=== PATIENT | male | born 1955 | race Caucasian/White ===

== ENCOUNTER 2016-08-01 10:53 | Day surgery (SDC) | payer BC, OTHER ==
[~2016-08-01 10:53] MED LIST: Lactated Ringers 1,000 ML IV SCH; ceFAZolin 1 GM in Premix Bag 1 BAG IV ONE
[2016-08-01] MEDS ORDERED: Iopamidol 408 MG/ML 50 ML SDV ONE (12:10)
--- NOTE | 2016-08-01 13:24 | PCM.PREANE ---
Preanesthetic Assessment - Procedure Proposed Procedure: Cystoureteropscopy with stone removal by means to be determined - Anesthesia/Transfusion/Family Hx Anesthesia History: Prior Anesthesia Without Reaction Family History of Anesthesia Reaction: No Transfusion History: No Prior Transfusion(s) Intubation History: Unknown - Review of Systems General: No Symptoms Pulmonary: No Symptoms Cardiovascular: Other (Hypertension - treated with accupril and norvasc; both were taken today) Gastrointestinal: Abdominal pain (intermittent with known ureteral and kidney stones) Neurological: No Symptoms - Physical Assessment NPO Status Date: 07/31/16 NPO Status Time: 23:00 O2 Sat by Pulse Oximetry: 95 Respiratory Rate: 16 Vital Signs: Last Vital Signs Temp 98.4 F 08/01/16 11:05 Pulse 89 08/01/16 11:05 Resp 16 08/01/16 11:05 BP 117/81 08/01/16 11:05 Pulse Ox 95 08/01/16 11:05 Height: 5 ft 8 in Weight: 203 lb ASA Class: 2 Mental Status: Alert & Oriented x3 Airway Class: Mallampati = 1 Dentition: Reports: Normal Dentition Thyro-Mental Finger Breadths: 3 Mouth Opening Finger Breadths: 3 ROM/Head Extension: Full Lungs: Clear to auscultation, Normal respiratory effort Cardiovascular: Regular Rate, Regular Rhythm, No Murmurs - Allergies Allergies/Adverse Reactions: Allergies Allergy/AdvReac Type Severity Reaction Status Date / Time No Known Allergies Allergy Verified 07/28/16 14:51 - Blood Blood Available: No - Anesthesia Plan Pre-Op Medication Ordered: None - Acknowledgements Anesthesia Type Planned: General Anesthesia (OET vs LMA) Pt an Appropriate Candidate for the Planned Anesthesia: Yes Alternatives and Risks of Anesthesia Discussed w Pt/Guardian: Yes Pt/Guardian Understands and Agrees with Anesthesia Plan: Yes PreAnesthesia Questionnaire Other HEENT History: wears glasses Cardiovascular History: Reports: High Cholesterol, Hypertension Respiratory History: Reports: None Gastrointestinal History: Reports: None Genitourinary History: Reports: None, Renal Calculus Other Genitourinary History: has passes stones previously Musculoskeletal History: Reports: Fracture Other Musculoskeletal History: hx of bilateral fx ankles as a child Neurological History: Reports: None Psychiatric History: Reports: None Endocrine/Metabolic History: Reports: None Hematologic History: Reports: None Immunologic History: Reports: None Oncologic (Cancer) History: Reports: None Dermatologic History: Reports: None - Past Surgical History Head Surgeries/Procedures: Reports: None HEENT Surgical History: Reports: None Cardiovascular Surgical History: Reports: None Respiratory Surgical History: Reports: None GI Surgical History: Reports: Appendectomy Male Surgical History: Reports: None Endocrine Surgical History: Reports: None Neurological Surgical History: Reports: None Musculoskeletal Surgical History: Reports: Other (See Below) Other Musculoskeletal Surgeries/Procedures:: repair of bilateral club feet as an Oncologic Surgical History: Reports: None Dermatological Surgical History: Reports: None - SUBSTANCE USE Smoking Status *Q: Never Smoker Recreational Drug Use History: No - HOME MEDS Home Medications: Home Meds Multivitamin [Daily Multiple Vitamin] 1 tab PO DAILY 07/28/16 [History] Quinapril HCl [Accupril] 40 mg PO BID 07/28/16 [History] Super Greens 1 tab PO DAILY 07/28/16 [History] Ubidecarenone [Co Q-10] 10 mg PO DAILY 07/28/16 [History] [facility] Supplement 1 tab PO DAILY 07/28/16 [History] amLODIPine [Norvasc] 5 mg PO DAILY 07/28/16 [History] atorvaSTATin [Lipitor] 10 mg PO DAILY 07/28/16 [History] - CURRENT (IN HOUSE) MEDS Current Meds: Current Medications Lactated Ringer's (Ringers, Lactated) 1,000 mls @ 100 mls/hr IV ASDIRECTED [facility] Last Admin: 08/01/16 11:15 Dose: 100 mls/hr Discontinued Medications Cefazolin Sodium/Dextrose 1 gm (/ Premix) 50 mls @ 100 mls/hr IV ONCALL ONE Stop: 08/01/16 00:30 Iopamidol (Isovue-200 (41%)) Confirm Administered Dose 50 ml .ROUTE .STK-MED ONE Stop: 08/01/16 12:11
[2016-08-01] MEDS ORDERED: Lidocaine 2% 5 ML SDV ONE (13:43)
[2016-08-01] MEDS ORDERED: fentaNYL 250 MCG/5 ML SDV ONE (13:43)
[2016-08-01] MEDS ORDERED: Midazolam 1 MG/ML 2 ML SDV ONE (13:43)
[2016-08-01] MEDS ORDERED: Propofol 200 MG/20 ML SDV ONE ×2 (13:43→15:06)
[2016-08-01] MEDS ORDERED: Rocuronium 10 MG/ML 10 ML Syringe ONE (13:44)
[2016-08-01] MEDS ORDERED: ceFAZolin 1 GM Vial ONE (13:44)
[2016-08-01] MEDS ORDERED: Neostigmine Methylsulfate 1 MG/ML 5 ML Syringe ONE (13:44)
[2016-08-01] MEDS ORDERED: Ketorolac 30 MG/ML SDV ONE (13:44)
[2016-08-01] MEDS ORDERED: Ondansetron 4 MG/2 ML SDV ONE (13:44)
[2016-08-01] MEDS ORDERED: ePHEDrine 50 MG/ML SDV ONE (14:05)
[2016-08-01] MEDS ORDERED: fentaNYL 100 MCG/2 ML SDV IVPUSH PRN ×2 (14:27→15:33)
--- NOTE | 2016-08-01 16:23 | CR ---
EXAMINATION: Right ureteroscopy HISTORY: Ureteroscopy COMPARISON: None TECHNIQUE: Single fluoroscopic image provided FINDINGS/IMPRESSION: Operative control films demonstrate a pigtail stent with tip projecting over th e right renal collecting system. There is possibly a stone within the proximal right ureter.
--- NOTE | 2016-08-01 16:39 | PCM.POSTAN ---
POST ANESTHESIA ASSESSMENT - MENTAL STATUS Mental Status: alert, oriented - RESPIRATORY Respiratory Status: respiratory rate WNL, airway patent, O2 saturation stable - CARDIOVASCULAR CV Status: pulse rate WNL, blood pressure stable - GASTROINTESTINAL GI Status: no symptoms - PAIN Pain Score: 0 - POST OP HYDRATION Hydration Status: adequate & stable
[2016-08-01 17:26] VITALS: BP 106/69
--- NOTE | 2016-08-01 17:33 | PCM48HPAN ---
Post Anesthesia Note - EVALUATION WITHIN 48HRS OF ANESTHETIC Vital Signs in Normal Range: Yes Patient Participated in Evaluation: Yes Respiratory Function Stable: Yes Airway Patent: Yes Cardiovascular Function Stable: Yes Hydration Status Stable: Yes Pain Control Satisfactory: Yes Nausea and Vomiting Control Satisfactory: Yes Mental Status Recovered: Yes
--- NOTE | 2016-08-01 18:58 | OR ---
SURGEON: Kevin Arce M.D. DATE OF PROCEDURE: 08/01/2016 PREOPERATIVE DIAGNOSES: Right lower ureteral stone plus right renal pelvis stones. POSTOPERATIVE DIAGNOSES: Right lower ureteral stone plus right renal pelvis stones. OPERATION PERFORMED: Cystoscopy, right ureteroscopy, stone removal, laser lithotripsy for renal pelvis stones. DESCRIPTION OF PROCEDURE: The patient was given general anesthesia, placed in dorsal lithotomy position, prepped and draped in sterile drapes. 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 The inside of the bladder was normal. A guidewire was advanced in the right ureter alongside the stone all the way up into the renal pelvis. Lower ureter was then dilated using UroMax II balloon dilator to approximately 15-Kinyarwanda. The rigid ureteroscope was used to gain access to the lower ureter, where the stone was taken out. Another guidewire was advanced alongside the existing guidewire all the way up into the renal pelvis over which the flexible ureteroscope was advanced into the renal pelvis and multiple stones were broken up into a multitude of smaller pieces. With that done, the procedure was terminated. A 6-Kinyarwanda 26 cm double-J stent was placed in. Position was confirmed with fluoroscopy. The bladder was emptied. The string at the end of the stent was taped to the outside of the penis, and the patient was moved to recovery room in good condition. JOEL / TASHIA /[id number]
== END 2016-08-01 18:40 | disposition home or self-care (01) ==
LOC: MW.SDS 10:53
PROVIDERS: ATTEND Urology
PROC: 0WFR8ZZ Fragmentation in Genitourinary Tract, Via Natural or Artificial Opening Endoscopic (ICD-10-PCS; principal; 2016-08-01)
PROC: 0TF68ZZ Fragmentation in Right Ureter, Via Natural or Artificial Opening Endoscopic (ICD-10-PCS; 2016-08-01)
PROC: 0T768DZ Dilation of Right Ureter with Intraluminal Device, Via Natural or Artificial Opening Endoscopic (ICD-10-PCS; 2016-08-01)
DX: N20.2 Calculus of kidney with calculus of ureter (principal); N39.0 Urinary tract infection, site not specified
CPT/HCPCS: 52356; 76001; C1769; C2625; J0690; J1885; J2250; J2405; J3010; J7120; Q9966; 00918; 88300; J2704

== ENCOUNTER 2017-03-06 08:37 | Day surgery (SDC) | payer OTHER ==
[~2017-03-06 08:37] MED LIST changes: +Iopamidol 408 MG/ML 50 ML SDV ONE; +Sodium Chloride 0.9% 10 ML Syringe FLUSH PRN; +Sodium Chloride 0.9% 2.5 ML Syringe FLUSH PRN; +ceFAZolin 1 GM Vial IV ONE; -ceFAZolin 1 GM in Premix Bag 1 BAG IV ONE
--- NOTE | 2017-03-06 10:07 | PCM.PREANE ---
Preanesthetic Assessment - Anesthesia/Transfusion/Family Hx Anesthesia History: Prior Anesthesia Without Reaction Family History of Anesthesia Reaction: No Transfusion History: No Prior Transfusion(s) Intubation History: Unknown - Review of Systems General: No Symptoms Pulmonary: No Symptoms Cardiovascular: No Symptoms Gastrointestinal: No Symptoms Neurological: No Symptoms Other: Reports: None - Physical Assessment NPO Status Date: 03/05/17 NPO Status Time: 20:00 O2 Sat by Pulse Oximetry: 97 Respiratory Rate: 14 Vital Signs: Last Vital Signs Temp 36.8 C 03/06/17 09:00 Pulse 82 03/06/17 09:00 Resp 14 03/06/17 09:00 BP 124/82 03/06/17 09:00 Pulse Ox 97 03/06/17 09:00 Height: 1.73 m Weight: 100.244 kg ASA Class: 2 Mental Status: Alert & Oriented x3 Dentition: Reports: Normal Dentition ROM/Head Extension: Full Lungs: Clear to Auscultation, Normal Respiratory Effort Cardiovascular: Regular Rate, Regular Rhythm - Allergies Allergies/Adverse Reactions: Allergies Allergy/AdvReac Type Severity Reaction Status Date / Time No Known Allergies Allergy Verified 07/28/16 14:51 - Anesthesia Plan Pre-Op Medication Ordered: None - Acknowledgements Anesthesia Type Planned: General Anesthesia Pt an Appropriate Candidate for the Planned Anesthesia: Yes Alternatives and Risks of Anesthesia Discussed w Pt/Guardian: Yes Pt/Guardian Understands and Agrees with Anesthesia Plan: Yes Additional Comments: PMH: ntn, on accupril and norvasc PreAnesthesia Questionnaire HEENT History: Reports: Other (See Below) Other HEENT History: wears glasses Cardiovascular History: Reports: High Cholesterol, Hypertension Respiratory History: Reports: None Gastrointestinal History: Reports: None Genitourinary History: Reports: Renal Calculus Musculoskeletal History: Reports: Fracture Other Musculoskeletal History: hx of bilateral fx ankles as a child Neurological History: Reports: None Psychiatric History: Reports: None Endocrine/Metabolic History: Reports: None Hematologic History: Reports: None Immunologic History: Reports: None Oncologic (Cancer) History: Reports: None Dermatologic History: Reports: None - Past Surgical History Head Surgeries/Procedures: Reports: None HEENT Surgical History: Reports: None Cardiovascular Surgical History: Reports: None Respiratory Surgical History: Reports: None GI Surgical History: Reports: Appendectomy Male Surgical History: Reports: Lithotripsy ([facility]) Endocrine Surgical History: Reports: None Neurological Surgical History: Reports: None Musculoskeletal Surgical History: Reports: Other (See Below) Other Musculoskeletal Surgeries/Procedures:: 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 Oncologic Surgical History: Reports: None Dermatological Surgical History: Reports: None - SUBSTANCE USE Smoking Status *Q: Never Smoker Recreational Drug Use History: No - HOME MEDS Home Medications: Home Meds Multivitamin [Daily Multiple Vitamin] 1 tab PO DAILY 07/28/16 [History] Quinapril HCl [Accupril] 40 mg PO BID 07/28/16 [History] Super Greens 1 tab PO DAILY 07/28/16 [History] Ubidecarenone [Co Q-10] 10 mg PO DAILY 07/28/16 [History] [facility] Supplement 1 tab PO DAILY 07/28/16 [History] amLODIPine [Norvasc] 5 mg PO DAILY 07/28/16 [History] atorvaSTATin [Lipitor] 10 mg PO DAILY 07/28/16 [History] - CURRENT (IN HOUSE) MEDS Current Meds: Current Medications Lactated Ringer's (Ringers, Lactated) 1,000 mls @ 100 mls/hr IV ASDIRECTED [facility] Last Admin: 03/06/17 09:18 Dose: 100 mls/hr Sodium Chloride (Saline Flush) 10 ml FLUSH ASDIRECTED PRN PRN Reason: Keep Vein Open Sodium Chloride (Saline Flush) 2.5 ml FLUSH ASDIRECTED PRN PRN Reason: Keep Vein Open Discontinued Medications Cefazolin Sodium (Ancef) 1 gm IV ONCALL ONE Stop: 03/06/17 07:01 Iopamidol (Isovue-200 (41%)) Confirm Administered Dose 50 ml .ROUTE .STK-MED ONE Stop: 03/06/17 07:29
[2017-03-06] MEDS ORDERED: Lidocaine 2% 5 ML SDV ONE ×2 (10:57→11:19)
[2017-03-06] MEDS ORDERED: fentaNYL 250 MCG/5 ML SDV ONE (10:58)
[2017-03-06] MEDS ORDERED: Midazolam 1 MG/ML 2 ML SDV ONE (10:58)
[2017-03-06] MEDS ORDERED: Propofol 200 MG/20 ML SDV ONE ×2 (10:58→11:19)
[2017-03-06] MEDS ORDERED: Ondansetron 4 MG/2 ML SDV ONE (10:59)
[2017-03-06] MEDS ORDERED: Neostigmine Methylsulfate 1 MG/ML 5 ML Syringe ONE (10:59)
[2017-03-06] MEDS ORDERED: Rocuronium 10 MG/ML 10 ML Syringe ONE (10:59)
[2017-03-06] MEDS ORDERED: Ketorolac 30 MG/ML SDV ONE (10:59)
[2017-03-06] MEDS ORDERED: fentaNYL 100 MCG/2 ML SDV IVPUSH PRN (14:02)
--- NOTE | 2017-03-06 14:23 | PCM.POSTAN ---
POST ANESTHESIA ASSESSMENT - MENTAL STATUS Mental Status: Alert, Oriented - VITAL SIGNS Pulse Rate: 76 SaO2: 93 Resp Rate: 14 Blood Pressure: 120/69 - RESPIRATORY Respiratory Status: Respiratory Rate WNL, Airway Patent, O2 Saturation Stable - CARDIOVASCULAR CV Status: Pulse Rate WNL, Blood Pressure Stable - GASTROINTESTINAL GI Status: No Symptoms - PAIN Pain Score: 0 - POST OP HYDRATION Hydration Status: Adequate & Stable
[2017-03-06 15:31] VITALS: BP 124/78
--- NOTE | 2017-03-06 18:36 | OR ---
SURGEON: Kevin Arce M.D. DATE OF PROCEDURE: 03/06/2017 PREOPERATIVE DIAGNOSIS: Right lower ureteral stones. POSTOPERATIVE DIAGNOSIS: Right lower ureteral stones. OPERATION PERFORMED: Ureteroscopy, laser lithotripsy, and removal of ureteral stones. DESCRIPTION OF PROCEDURE: The patient was given general anesthesia, placed in dorsal lithotomy position, prepped and draped in sterile drapes. Cystourethroscopy was done, that was normal. The rigid ureteroscope was advanced in the right lower ureter. The ureter did not need to be dilated. The stones in the lower ureter were visualized, they were approximately half an inch behind the UVJ. Laser was used to break up the largest which was the most distal one and that stone was eventually removed when it was small enough to be grasped and removed. The rest of stones were treated in the same manner. At the end, all stone fragments are removed and submitted. The bladder was emptied of stones and of irrigation fluid, and the patient was moved to recovery room in good condition. JOEL / TASHIA /[id number]
== END 2017-03-06 15:15 | disposition home or self-care (01) ==
LOC: MW.SDS 08:37
PROVIDERS: ATTEND Urology
DX: N20.1 Calculus of ureter (principal); I10 Essential (primary) hypertension; Z79.899 Other long term (current) drug therapy; Z90.49 Acquired absence of other specified parts of digestive tract
CPT/HCPCS: 52353; 76000; C1769; J1885; J2250; J2405; J3010; J7120; 00910; 88300; J2704; Q9966